=== PATIENT | female | born 1930 | race Caucasian/White ===

== ENCOUNTER 2017-01-09 09:56 | Emergency (ER) | payer MEDICARE, BC ==
[~2017-01-09] VITALS: Ht 149.9 cm; Wt 65.9 kg
[~2017-01-09 09:56] MED LIST: ALDACTONE 25MG25 M1 PO; AMLODIPINE5 MG PO; ASPIRIN 81M81 MG/TA2 PO; ATOXIMETIN-B1 CAP PO; BUTALBITAL/APAP1 TA1 PO; BYSTOLIC20 MG PO; BYSTOLIC5 MG PO; CALCIUM ANTAC1000 M2 PO; CALTRATE 600 +1 TAB PO; CARDIZEM CD240 MG PO; CELEBREX50 MG PO; DILTIAZEM CD240 MG PO; FIORICET 325 MG1 TA1 PO; FIORICET 325 MG1 TAB PO; FLEXERIL10 MG PO; FOLIC ACID 40400 MCG PO; IRON325 M1 PO; LASIX 20MG TABL20 MG PO; LEVAQUIN 5500 MG/TA1 PO; LEVAQUIN 5500 MG/TAB PO; LISINOPRIL20 MG PO; LISINOPRIL40 MG PO; MICARDIS40 MG PO; NATURE'S BL400 IU/ML PO; NORCO 325 MG-51 TAB PO; POTASSIUM20 MEQ PO; PRILOSEC 20MG20 MG PO; SINGULAIR 110 MG/TAB PO; TIAZAC240 MG PO; UNABLE; VASOTEC 2.2.5 MG/TAB PO; VICODIN 5/5001 UDTAB PO; VITAMIN C BUFF500 MG PO; ZESTRIL 20MG TA20 MG PO; ZOFRAN 4MG T4 MG/TAB PO; ZOFRAN ODT4 MG PO; ZYRTEC 10MG10 MG PO
[2017-01-09 10:09] VITALS: TEMP 98.2
[2017-01-09 11:37] LABS: PH 6 (5-8); SQUAMOUS EPITHELIAL None Seen /hpf; URINE APPEARANCE Clear; URINE BACTERIA Rare /hpf; URINE BILIRUBIN Negative (NEGATIVE); URINE BLOOD Negative (NEGATIVE); URINE COLOR Colorless; URINE GLUCOSE Negative (NEGATIVE); URINE KETONE Negative (NEGATIVE); URINE RBC 0-2 /hpf; URINE UROBILINOGEN Negative (NEGATIVE); URINE WBC 0-2 /hpf
[2017-01-09 11:40] LABS: ADJUSTED CALCIUM 9.8 mg/dL (8.4-10.2); BILIRUBIN,TOTAL 0.9 mg/dL (0.0-1.0); CALCIUM 9.8 mg/dL (8.4-10.2); CREATININE, serum 0.78 mg/dL (0.52-1.25); TOTAL PROTEIN 7.6 gm/dL (6.4-8.2)
[2017-01-09 11:45] LABS: BASO % 0.7 % (0.0-2.0); EOS # 0.1 (0.0-0.7); EOS % 2.1 % (0-4.0); GRAN # 3.7 (1.4-6.5); GRAN % 60.2 % (42.2-75.2); HEMATOCRIT 42.5 % (37.0-47.0); LYMPH # 1.7 (1.2-3.4); MEAN CELL VOLUME 89 fl (80.0-100.0); MEAN CORPUSCULAR HEMOGLOBIN 29 pg (27.0-31.0); MEAN CORPUSCULAR HGB CONC 33 g/dl (33.0-37.0); MEAN PLATELET VOLUME 10.8 fl (7.4-10.4); MONO # 0.5 (0.1-0.6); MONO % 8.7 % (1.7-9.3); PLATELET COUNT 201 K/mm3 (130-400); RED BLOOD COUNT 4.78 M/mm3 (4.10-5.30); REDCELL DISTRIBUTION WIDTH-CV 12.7 % (11.5-14.5); WHITE BLOOD COUNT 6.1 K/mm3 (4.8-10.8)
[2017-01-09] MEDS ORDERED: APRESOLINE 10MG10 MG PO (13:49)
[2017-01-09] MEDS ORDERED: ANTIVERT 12.512.5 MG PO (14:22)
[2017-01-09 14:24] VITALS: BP 177/83; PULSE 58
== END 2017-01-09 14:28 | disposition home or self-care (01) ==
LOC: COL.ER 09:56
PROVIDERS: Emergency Medicine
DX: R42 Dizziness and giddiness (principal); I10 Essential (primary) hypertension; R00.1 Bradycardia, unspecified; I49.1 Atrial premature depolarization

== ENCOUNTER → 2017-01-16 | Outpatient (CLI) | payer MEDICARE, BC ==
[~2017-01-16] MED LIST changes: +ANTIVERT 12.512.5 MG PO; +APRESOLINE 10MG10 MG PO; +ATIVAN 1MG T1 MG/TAB PO; +CEPHALEXIN500 M1 PO; +FLEXERIL 1010 MG/TAB PO; +TYLENOL 500MG500 MG PO
== END ==
LOC: COL.RAD 13:00
DX: R51 Headache (principal)
CPT/HCPCS: A9585

== ENCOUNTER → 2017-01-25 | Outpatient (CLI) | payer MEDICARE, BC | LOC: COL.RAD 07:27 | DX: R53.1 Weakness (principal); R06.02 Shortness of breath; R51 Headache; I08.0 Rheumatic disorders of both mitral and aortic valves; I67.1 Cerebral aneurysm, nonruptured | CPT/HCPCS: Q9967 ==

== ENCOUNTER → 2017-01-28 | Outpatient (CLI) | payer MEDICARE, BC | LOC: COL.RAD 14:55 | DX: R91.1 Solitary pulmonary nodule (principal); I51.7 Cardiomegaly; K44.9 Diaphragmatic hernia without obstruction or gangrene | CPT/HCPCS: Q9967 ==

== ENCOUNTER → 2017-01-28 | Outpatient (CLI) | payer MEDICARE, BC ==
[2017-01-28 14:08] LABS: ANION GAP 11 mmol/L (7-16); BLOOD UREA NITROGEN 17 mg/dL (7-17); CALCIUM 9.7 mg/dL (8.4-10.2); CARBON DIOXIDE 30 mmol/L (22-30); CHLORIDE 99 mmol/L (98-107); CREATININE, serum 0.86 mg/dL (0.52-1.25); GLUCOSE 96 mg/dL (74-106); POTASSIUM 4.8 mmol/L (3.4-5.0); SODIUM 139 mmol/L (137-145)
[2017-01-28 14:20] LABS: B-TYPE NATRIURETIC PEPTIDE 772 pg/mL (0-450); TROPONIN-I < 0.012 ng/mL (0.000-0.034)
[2017-01-29 20:05] LABS: MAGNESIUM 2.2 mg/dL (1.6-2.3)
== END ==
LOC: COL.LAB 13:28
PROVIDERS: Internal Medicine
DX: R06.02 Shortness of breath (principal); I50.30 Unspecified diastolic (congestive) heart failure; E87.5 Hyperkalemia

== ENCOUNTER → 2017-01-29 | Outpatient (CLI) | payer MEDICARE, BC | LOC: COL.VAS 13:54 | DX: M79.604 Pain in right leg (principal); M79.605 Pain in left leg ==

== ENCOUNTER 2017-02-21 09:54 | Inpatient (IN) | payer MEDICARE, BC ==
[~2017-02-21] VITALS: Ht 149.9 cm; Wt 65.9 kg
[2017-02-21] VITALS (8 sets, daily range): BP systolic 136–190; BP diastolic 52–92; PULSE 59–73; TEMP 98.4
[~2017-02-21 09:54] MED LIST changes: -ATIVAN 1MG T1 MG/TAB PO; -CEPHALEXIN500 M1 PO; -FLEXERIL 1010 MG/TAB PO; -TYLENOL 500MG500 MG PO
[2017-02-21] MEDS ORDERED: ATIVAN 1MG T1 MG/TAB PO (11:03)
[2017-02-21] MEDS ORDERED: FLEXERIL 1010 MG/TAB PO (11:04)
[2017-02-21] MEDS ORDERED: TYLENOL 500MG500 MG PO (11:06)
[2017-02-22 04:30] VITALS: BP 135/79; PULSE 79
[2017-02-22 07:43] LABS: CALCIUM 9.3 mg/dL (8.4-10.2); CREATININE, serum 0.65 mg/dL (0.52-1.25); POTASSIUM 4.6 mmol/L (3.4-5.0)
[2017-02-22 08:11] VITALS: BP 115/55; PULSE 65
[2017-02-22 08:53] LABS: BASO % 0.3 % (0.0-2.0); EOS % 0.2 % (0-4.0); GRAN # 10.2 (1.4-6.5); GRAN % 87.5 % (42.2-75.2); HEMATOCRIT 44.5 % (37.0-47.0); HEMOGLOBIN 14.6 g/dl (12.5-16.0); LYMPH # 0.7 (1.2-3.4); LYMPH % 6.3 % (20.0-51.0); MEAN CELL VOLUME 89 fl (80.0-100.0); MEAN CORPUSCULAR HEMOGLOBIN 29 pg (27.0-31.0); MEAN CORPUSCULAR HGB CONC 33 g/dl (33.0-37.0); MONO # 0.6 (0.1-0.6); MONO % 5.3 % (1.7-9.3); PLATELET COUNT 176 K/mm3 (130-400); RED BLOOD COUNT 5.02 M/mm3 (4.10-5.30); REDCELL DISTRIBUTION WIDTH-CV 13.1 % (11.5-14.5); WHITE BLOOD COUNT 11.6 K/mm3 (4.8-10.8)
[2017-02-22 12:44] VITALS: BP 134/67; PULSE 60; TEMP 98.7
[2017-02-22 16:00] VITALS: BP 128/57; PULSE 58; TEMP 98.4
[2017-02-22 18:57] VITALS: BP 126/63; PULSE 66; TEMP 97.4
[2017-02-22 23:03] VITALS: BP 141/75; PULSE 60; TEMP 98.8
[2017-02-23 02:29] VITALS: BP 154/71; PULSE 67; TEMP 98.2
[2017-02-23 09:42] VITALS: BP 126/59; PULSE 59; TEMP 97.8
[2017-02-23 11:57] VITALS: BP 174/71; PULSE 64; TEMP 98.6
[2017-02-23] MEDS ORDERED: CEPHALEXIN500 M1 PO (12:04)
== END 2017-02-23 12:52 | disposition home or self-care (01) | DRG 201 ==
LOC: EUO 09:54 → COL.CAR 10:00 → MEDICAL 16:10 → EUO 02-22 12:00 → MEDICAL 02-22 12:01
PROVIDERS: Internal Medicine Cardiovascular Disease
PROC: 0JH606Z Insertion of Pacemaker, Dual Chamber into Chest Subcutaneous Tissue and Fascia, Open Approach (ICD-10-PCS; principal; 2017-02-21)
PROC: 02H63JZ Insertion of Pacemaker Lead into Right Atrium, Percutaneous Approach (ICD-10-PCS; 2017-02-21)
PROC: 02HK3JZ Insertion of Pacemaker Lead into Right Ventricle, Percutaneous Approach (ICD-10-PCS; 2017-02-21)
PROC: 0W9B30Z Drainage of Left Pleural Cavity with Drainage Device, Percutaneous Approach (ICD-10-PCS; 2017-02-22)
DX: J95.811 Postprocedural pneumothorax (principal); I49.5 Sick sinus syndrome; I10 Essential (primary) hypertension; Z95.2 Presence of prosthetic heart valve
CPT/HCPCS: OP; C1769; C1785; C1898; J0690; J2250; J3010; J7030; J7040; Q9967

== ENCOUNTER 2020-06-13 17:38 | Emergency (ER) | payer MEDICARE, BC ==
[~2020-06-13] VITALS: Ht 149.9 cm; Wt 66.8 kg
[~2020-06-13 17:38] MED LIST changes: +ATIVAN 1MG T1 MG/TAB PO; +CEPHALEXIN500 M1 PO; +FLEXERIL 1010 MG/TAB PO; +TYLENOL 500MG500 MG PO
[2020-06-13 17:59] VITALS: TEMP 98.4
[2020-06-13 19:14] LABS: BASO % 0.4 % (0.0-2.0); EOS # 0.2 (0.0-0.7); EOS % 2.8 % (0-4.0); GRAN # 3.8 (1.4-6.5); GRAN % 56.3 % (42.2-75.2); HEMATOCRIT 41.9 % (37.0-47.0); HEMOGLOBIN 13.8 g/dl (12.5-16.0); LYMPH % 29.2 % (20.0-51.0); MEAN CELL VOLUME 88 fl (80.0-100.0); MEAN CORPUSCULAR HEMOGLOBIN 29 pg (27.0-31.0); MEAN CORPUSCULAR HGB CONC 33 g/dl (33.0-37.0); MEAN PLATELET VOLUME 10.4 fl (7.4-10.4); MONO # 0.7 (0.1-0.6); PLATELET COUNT 192 K/mm3 (130-400); RED BLOOD COUNT 4.75 M/mm3 (4.10-5.30)
[2020-06-13 19:30] LABS: ALANINE AMINOTRANSFERASE 15 U/L (4-34); ALBUMIN 3.6 gm/dL (3.5-5.0); ALKALINE PHOSPHATASE 141 U/L (50-136); ANION GAP 6 mmol/L (7-16); AST,SGOT 22 U/L (15-37); BILIRUBIN,TOTAL 0.4 mg/dL (0.0-1.0); BLOOD UREA NITROGEN 17 mg/dL (7-17); CALCIUM 8.6 mg/dL (8.4-10.2); CARBON DIOXIDE 25 mmol/L (22-30); CHLORIDE 106 mmol/L (98-107); CREATININE, serum 0.84 (0.52-1.25); GLUCOSE 104 mg/dL (74-106); POTASSIUM 3.9 mmol/L (3.4-5.0); SODIUM 137 mmol/L (137-145); TOTAL PROTEIN 6.9 gm/dL (6.4-8.2)
[2020-06-13 19:55] LABS: TROPONIN-I < 0.012 ng/mL (0.000-0.035)
[2020-06-13 20:43] LABS: COLLECTION METHOD CLEAN CATCH
[2020-06-13 20:53] LABS: PH 7 (5-8); SQUAMOUS EPITHELIAL 0-2 /hpf; URINE APPEARANCE Clear; URINE BACTERIA None Seen /hpf; URINE BILIRUBIN Negative (NEGATIVE); URINE BLOOD Negative (NEGATIVE); URINE COLOR Straw; URINE GLUCOSE Negative (NEGATIVE); URINE KETONE Negative (NEGATIVE); URINE LEUKOCYTE ESTERASE Negative (NEGATIVE); URINE NITRATE Negative (NEGATIVE); URINE PROTEIN(semi-quant) Negative (NEGATIVE); URINE RBC None Seen /hpf; URINE UROBILINOGEN Negative (NEGATIVE)
[2020-06-13 21:30] VITALS: BP 158/70; PULSE 60
== END 2020-06-13 21:30 | disposition home or self-care (01) ==
LOC: COL.ER 17:38
PROVIDERS: Emergency Medicine
DX: R53.81 Other malaise (principal); R06.02 Shortness of breath; R19.7 Diarrhea, unspecified; R07.9 Chest pain, unspecified; I10 Essential (primary) hypertension; Z79.82 Long term (current) use of aspirin; Z88.6 Allergy status to analgesic agent; Z95.0 Presence of cardiac pacemaker
CPT/HCPCS: J7030; Q9967

== ENCOUNTER → 2020-06-20 | Outpatient (CLI) | payer MEDICARE, BC | LOC: COL.RAD 08:05 | DX: K44.9 Diaphragmatic hernia without obstruction or gangrene (principal) ==

== ENCOUNTER 2020-07-04 08:25 | Day surgery (SDC) | payer MEDICARE, BC ==
[~2020-07-04] VITALS: Ht 149.9 cm; Wt 67.2 kg
[2020-07-04] VITALS (11 sets, daily range): BP systolic 136–166; BP diastolic 57–91; PULSE 57–64; TEMP 98.5
[2020-07-04] MEDS ORDERED: ZEBETA10 MG PO (08:54)
[2020-07-04] MEDS ORDERED: PROBIOTIC ACID1 EAC3 PO (08:55)
[2020-07-04 10:21] LABS: HEMATOCRIT 42.4 % (37.0-47.0); HEMOGLOBIN 13.9 g/dl (12.5-16.0); MEAN CELL VOLUME 88 fl (80.0-100.0); MEAN CORPUSCULAR HEMOGLOBIN 29 pg (27.0-31.0); MEAN CORPUSCULAR HGB CONC 33 g/dl (33.0-37.0); MEAN PLATELET VOLUME 10.7 fl (7.4-10.4); PLATELET COUNT 204 K/mm3 (130-400); RED BLOOD COUNT 4.82 M/mm3 (4.10-5.30)
[2020-07-04 10:28] LABS: CREATININE, serum 0.87 (0.52-1.25); POTASSIUM 4.1 mmol/L (3.4-5.0)
[2020-07-04 10:42] LABS: INR 1.1 (0.8-3.0); PROTHROMBIN TIME 11.8 SECONDS (9.7-12.8)
[2020-07-04 10:44] LABS: PARTIAL THROMBOPLASTIN TIME 30.4 SECONDS (26.0-37.0)
--- NOTE | 2020-07-04 13:45 | NUR ---
TR band decreased by 2 ml, with immediate bleeding from puncture site. 3ml replaced, and manual pressure applied with immediate cessation of bleeding.
--- NOTE | 2020-07-04 14:15 | NUR ---
TR band pressure reduced back to 12 ml, no further bleeding. Pt and daughter aware that site will be monitored again before attempting to release pressure from band.
--- NOTE | 2020-07-04 16:20 | NUR ---
Rt radial puncture site dressed with 2x2 gauze, bandaid. TR band is provided to pt, with air bladder deflated, to assist with reducing movement of rt wrist Arm board is also provided with instructions given for both to both pt and daughter. DC reviewed and both express understanding. IV removed with catheter intact, and bleeding controlled. Pt has tolerated PO without issue. Ambulated to toilet with x1 assistance. She is assisted out of dept to family's car by wheelchair.
== END 2020-07-04 16:30 | disposition home or self-care (01) ==
LOC: COL.CAR 08:25
PROVIDERS: Internal Medicine Cardiovascular Disease
DX: I25.119 Atherosclerotic heart disease of native coronary artery with unspecified angina pectoris (principal); R94.31 Abnormal electrocardiogram [ECG] [EKG]; Z88.5 Allergy status to narcotic agent
CPT/HCPCS: J1644; J2250; J3010; Q9967

== ENCOUNTER → 2020-10-12 | Outpatient (CLI) | payer MEDICARE, BC ==
[~2020-10-12] MED LIST changes: +PROBIOTIC ACID1 EAC3 PO; +ZEBETA10 MG PO
[2020-10-12 12:01] LABS: BASO % 0.4 % (0.0-2.0); EOS # 0.2 (0.0-0.7); EOS % 2.8 % (0-4.0); GRAN # 4.6 (1.4-6.5); GRAN % 63.4 % (42.2-75.2); HEMATOCRIT 47.3 % (37.0-47.0); HEMOGLOBIN 15.3 g/dl (12.5-16.0); LYMPH # 1.7 (1.2-3.4); LYMPH % 23.4 % (20.0-51.0); MEAN CELL VOLUME 89 fl (80.0-100.0); MEAN CORPUSCULAR HEMOGLOBIN 29 pg (27.0-31.0); MEAN CORPUSCULAR HGB CONC 32 g/dl (33.0-37.0); MEAN PLATELET VOLUME 10.6 fl (7.4-10.4); MONO # 0.7 (0.1-0.6); MONO % 9.7 % (1.7-9.3); PLATELET COUNT 218 K/mm3 (130-400); REDCELL DISTRIBUTION WIDTH-CV 13.7 % (11.5-14.5)
[2020-10-12 12:14] LABS: CALCIUM 9.6 mg/dL (8.4-10.2); CREATININE, serum 0.97 (0.52-1.25); POTASSIUM 4.1 mmol/L (3.4-5.0)
[2020-10-12 14:19] LABS: CLOSTRIDIUM DIFF A/B NEG; CLOSTRIDIUM DIFF A/B INTERP No C.diff present
== END ==
LOC: COL.LAB 11:10
PROVIDERS: Family Medicine
DX: R19.7 Diarrhea, unspecified (principal)

== ENCOUNTER 2020-12-15 14:00 | Outpatient (CLI) | payer MEDICARE, BC ==
[~2020-12-15] VITALS: Ht 149.9 cm; Wt 65.9 kg
[2020-12-15] VITALS (8 sets, daily range): BP systolic 139–156; BP diastolic 53–69; PULSE 59–68; TEMP 98.2
== END 2020-12-15 17:59 | disposition home or self-care (01) ==
LOC: EUO 14:00
DX: U07.1 COVID-19 (principal)
CPT/HCPCS: J7050

== ENCOUNTER → 2021-03-09 | Outpatient (CLI) | payer MEDICARE, BC ==
[~2021-03-09] MED LIST changes: +ENTRESTO 24 MG1 EACH PO; +PROBIOTIC FORMU1 CAP PO
[2021-03-09 15:54] LABS: BASO # 0.1 (0.0-0.2); BASO % 0.6 % (0.0-2.0); EOS # 0.2 (0.0-0.7); EOS % 2.1 % (0-4.0); GRAN # 5.3 (1.4-6.5); GRAN % 65.8 % (42.2-75.2); HEMATOCRIT 45.5 % (37.0-47.0); HEMOGLOBIN 14.7 g/dl (12.5-16.0); LYMPH # 1.7 (1.2-3.4); LYMPH % 21.6 % (20.0-51.0); MEAN CELL VOLUME 91 fl (80.0-100.0); MEAN CORPUSCULAR HEMOGLOBIN 29 pg (27.0-31.0); MEAN CORPUSCULAR HGB CONC 32 g/dl (33.0-37.0); MEAN PLATELET VOLUME 11.1 fl (7.4-10.4); MONO # 0.8 (0.1-0.6); MONO % 9.6 % (1.7-9.3); PLATELET COUNT 215 K/mm3 (130-400); RED BLOOD COUNT 5.02 M/mm3 (4.10-5.30); REDCELL DISTRIBUTION WIDTH-CV 13.3 % (11.5-14.5)
[2021-03-09 16:06] LABS: BILIRUBIN,TOTAL 0.2 mg/dL (0.0-1.0); CALCIUM 9.3 mg/dL (8.4-10.2); CREATININE, serum 0.93 (0.52-1.25); POTASSIUM 4.3 mmol/L (3.4-5.0); TOTAL PROTEIN 8.1 gm/dL (6.4-8.2)
[2021-03-09 16:36] LABS: THYROID STIMULATING HORMONE 2.76 uIU/mL (0.465-4.680)
== END ==
LOC: COL.RAD 14:27
PROVIDERS: Internal Medicine
DX: I51.7 Cardiomegaly (principal); R91.1 Solitary pulmonary nodule; K44.9 Diaphragmatic hernia without obstruction or gangrene; D35.02 Benign neoplasm of left adrenal gland; I50.30 Unspecified diastolic (congestive) heart failure; Z95.0 Presence of cardiac pacemaker
CPT/HCPCS: Q9967

== ENCOUNTER 2021-03-17 06:31 | Inpatient (IN) | payer MEDICARE, BC ==
[~2021-03-17] VITALS: Ht 149.9 cm; Wt 69.2 kg
[2021-03-17] VITALS (530 sets, daily range): BP systolic 96–137; BP diastolic 42–73; PULSE 53–68; TEMP 97.8–98.4; O2SAT 90–100
[~2021-03-17 06:31] MED LIST changes: -ENTRESTO 24 MG1 EACH PO; -PROBIOTIC FORMU1 CAP PO
[2021-03-17 07:32] LABS: HEMATOCRIT 43.8 % (37.0-47.0); MEAN CELL VOLUME 90 fl (80.0-100.0); MEAN CORPUSCULAR HEMOGLOBIN 29 pg (27.0-31.0); MEAN CORPUSCULAR HGB CONC 32 g/dl (33.0-37.0); MEAN PLATELET VOLUME 10.5 fl (7.4-10.4); PLATELET COUNT 202 K/mm3 (130-400); RED BLOOD COUNT 4.88 M/mm3 (4.10-5.30); REDCELL DISTRIBUTION WIDTH-CV 13.2 % (11.5-14.5)
[2021-03-17 07:41] LABS: PROTHROMBIN TIME 11.6 SECONDS (9.7-12.8)
[2021-03-17 07:49] LABS: CALCIUM 9.1 mg/dL (8.4-10.2); CREATININE, serum 0.86 (0.52-1.25); POTASSIUM 4.4 mmol/L (3.4-5.0)
[2021-03-17] MEDS ORDERED: LASIX 20MG TABL20 MG PO (08:09)
[2021-03-17] MEDS ORDERED: ENTRESTO 24 MG1 EACH PO (08:12)
[2021-03-17] MEDS ORDERED: PROBIOTIC FORMU1 CAP PO (08:13)
--- NOTE | 2021-03-17 09:03 | NUR ---
SEE MERGE FOR ALL MEDICATION ADMINISTRATION TIMES, INTRA AND POST SEDATION ASSESSMENTS
--- NOTE | 2021-03-17 09:40 | NUR ---
Pt returned from procedure,report from Blake Mejia.
--- NOTE | 2021-03-17 10:16 | NUR ---
Pt to ICU one,report to ELIZ Pacheco.Daughter at bedside.
[2021-03-17 14:28] LABS: ALBUMIN 3.5 gm/dL (3.5-5.0); TOTAL PROTEIN 6.8 gm/dL (6.4-8.2)
[2021-03-18] VITALS (379 sets, daily range): BP systolic 103–119; BP diastolic 63–72; PULSE 68–82; TEMP 98.5–98.7; O2SAT 76–100
[2021-03-18 05:29] LABS: BASO % 0.4 % (0.0-2.0); EOS # 0.2 (0.0-0.7); EOS % 3.1 % (0-4.0); GRAN % 69.7 % (42.2-75.2); HEMATOCRIT 38.4 % (37.0-47.0); HEMOGLOBIN 12.6 g/dl (12.5-16.0); LYMPH # 1.3 (1.2-3.4); LYMPH % 18.2 % (20.0-51.0); MEAN CELL VOLUME 89 fl (80.0-100.0); MEAN CORPUSCULAR HEMOGLOBIN 29 pg (27.0-31.0); MEAN CORPUSCULAR HGB CONC 33 g/dl (33.0-37.0); MEAN PLATELET VOLUME 10.8 fl (7.4-10.4); MONO # 0.6 (0.1-0.6); MONO % 8.5 % (1.7-9.3); PLATELET COUNT 185 K/mm3 (130-400); RED BLOOD COUNT 4.32 M/mm3 (4.10-5.30); REDCELL DISTRIBUTION WIDTH-CV 13.2 % (11.5-14.5)
[2021-03-18 05:41] LABS: CALCIUM 8.4 mg/dL (8.4-10.2); CREATININE, serum 0.66 (0.52-1.25); MAGNESIUM 2.4 mg/dL (1.6-2.3); POTASSIUM 3.9 mmol/L (3.4-5.0)
--- NOTE | 2021-03-18 12:33 | NUR ---
stopped by but nothing needed at this time.
--- NOTE | 2021-03-18 14:06 | NUR ---
PT stated she wants to go home and is sick of all of the cords, the vitals, not having her own bed . The patient was advised of the risks of the leaving against medical advice and yet still insisted she was ready to leave. The daughter, Morena states, "Mom is of sound mind and if she does not want to stay she does not have to". Dr. Martínez notified. AMA paperwork signed. IV discontinued. PT is currently in room getting changed with daughter and are waiting for her portable oxygen tank to be delivered so that they are able to leave the building.
--- NOTE | 2021-03-18 14:24 | NUR ---
1420- PT RIDE WITH PORTABLE OXYGEN ARRIVED. Pt into car from wheelchair without incident. Pt educated on post laborer beam house instructions and agreed to call Saturday to make a cardiac follow up appointment.
[2021-03-23 08:47] LABS: A/G RATIO (PEP) 0.83 (())
== END 2021-03-18 14:20 | disposition left against medical advice (07) | DRG 287 ==
LOC: COL.CAR 06:31 → ICU 10:05 → COL.CAR 03-21 07:00
PROVIDERS: ADMIT Internal Medicine Cardiovascular Disease
PROC: 4A023N7 Measurement of Cardiac Sampling and Pressure, Left Heart, Percutaneous Approach (ICD-10-PCS; principal; 2021-03-17)
PROC: B2111ZZ Fluoroscopy of Multiple Coronary Arteries using Low Osmolar Contrast (ICD-10-PCS; 2021-03-17)
DX: I42.0 Dilated cardiomyopathy (principal); I50.9 Heart failure, unspecified; Z95.0 Presence of cardiac pacemaker
CPT/HCPCS: C1769; J1644; J2250; J2260; J3010